=== PATIENT | male | born 1970 | race Asian ===

== ENCOUNTER 2023-09-23 07:02 | Day surgery (SDC) | payer OTHER ==
[2023-09-22 09:29] VITALS: BP 141/98
[~2023-09-23] VITALS: Ht 170.2 cm; Wt 70.4 kg
[2023-09-23 07:17] VITALS: BP 152/94
[2023-09-23 12:03] VITALS: BP 146/83
--- NOTE | 2023-09-23 12:16 | NUR ---
LE 1155 PATIENT BACK TO ROOM 4. REPORT RECIEVED FROM EFFIE RAMIREZ. PATIENT DROWSY BUT ORIENTED. PATIENT HAS DRUG AND ALCOHOL COUNSELLOR ON PHONE. PATIENT DENIES BEING NAUSEATED. PATIENT STATES PAIN IS A 2/10 AND TOLERABLE AT THIS TIME. PATIENT HAVING MODERATE AMOUNT OF RED SPUTUM. DR. SAWYER AWARE. PATIENT IVF INFUSING. SCD'S ON. THIS RN AT BEDSIDE. LE 1210 REPORT GIVEN TO EFFIE HENDRICKS. NO QUESTIONS.
--- NOTE | 2023-09-23 12:20 | NUR ---
SILVERIO SORIA IN ROOM AT THIS TIME FOR VISUALIZATION OF PT BLEEDING AND DRESSING. NO NEW ORDERS AT THIS TIME.
--- NOTE | 2023-09-23 12:33 | NUR ---
THIS RN AND TRAVIS RN IN ROOM AT THIS TIME FOR DRIP PAD CHANGE D/T SATURATION OF CURRENT DRESSING THAT IS DRIPPING FROM PT NOSE ONTO CHEST. PT CONTINUES TO DO GOOD DEEP COUGHS THAT ARE PRODUCTIVE, PT USING YANKAUER FOR SUCTION AT LEISURE FOR ANY DRAINING OR SPUTUM COUGHED UP. PT STATES NO FURTHER QUESTIONS AT THIS TIME. PT TAKING SMALL SIPS OF ICE WATER, WELL SWISHING AND SPITTING INTO EMESIS BAG AT THIS TIME. CALL LIGHT WITHIN REACH. CONT. O2 PULSE OX IN PLACE, O2 >90% AT THIS TIME. NO FURTHER NEEDS AT THIS TIME.
--- NOTE | 2023-09-23 12:42 | NUR ---
09/23/23 1242 Tita Stark 1115 PT ARRIVED IN PACU NON RESPONSIVE TO NOXIOUS STIMULI WITH OPA IN PLACE. BILAT PACKING IN PLACE WITH BUTTON TIED AT END OF NOSE WITH MODERATED DRAINAGE NOTED. R RODRIGUEZ WITH BLOOD RUNNING DOWN CHEEK. DRIP PAD PLACED. 1120 DR AT BEDSIDE. 1124 PT REACTIVE. OPA REMOVED. 1125 PT MOVING HEAD SIDE TO SIDE AND BILAT NARES BLEEDING. DRIP PAD CHANGED AND PLACED TO BILAT NARES. 1126 PT COUGHING. RN ORALLY SUCTIONING PT. 1130 OXYGEN MASK REMOVED AND OXYMASK PLACED. SATS INCREASED TO 97% ON 10L. 1135 CALLED PT'S FRIEND THAT TRANSLATES, RELATED TO IPAD STATING LONG WAIT FOR MANDARIN MAID SUPERVISOR. PT'S FRIEND TRANSLATED FOR TEEN COUNSELOR. 1145 PT WITH NO C/O'S. 1155 TO DS. REPORT GIVEN TO RN.
--- NOTE | 2023-09-23 12:45 | NUR ---
THIS RN AND TRAVIS RN IN ROOM AT THIS TIME FOR DRESSING CHANGE. ICE PACK APPLIED TO NOSE AT THIS TIME. PT CONTINUES TO SPIT UP RED SPUTUM AND USE YANKAUER NEEDED. PT STATES NO FURTHER QUESTIONS OR NEEDS AT THIS TIME. DRIP PAD CHANGED D/T SATURATION. CALL LIGHT WITHIN REACH.
--- NOTE | 2023-09-23 12:51 | OR ---
[facility] [address], [place] [address] Signed DATE OF OPERATION: 09/23/2023 SURGEON: Scar Sawyer MD PREOPERATIVE DIAGNOSES: 1. Chronic sinonasal polyposis. 2. Chronic sinusitis. POSTOPERATIVE DIAGNOSES: 1. Chronic sinonasal polyposis. 2. Chronic sinusitis. PROCEDURES: 1. Bilateral pansinusotomies. 2. Bilateral intranasal polypectomies. ANESTHESIA: General, LMA; ADZING AND BORING MACHINE OPERATOR, Madhavi PREOPERATIVE HISTORY: Mr. Richard is a 53-year-old male with a long history of nasal congestion. Exam in the office has confirmed sinonasal polyposis. CAT scans confirmed pansinus opacification, presumptively from sinus polyps, nasal polyps. He is taken to the operating room for the above-mentioned procedures. OPERATIVE PROCEDURE AND FINDINGS: After informed consent, using bit setter chinmay since the patient is a Mandarin speaker, minimal Belarusian, he is taken to the operating room, placed in supine position. After informed consent, the patient received preoperative intranasal oxymetazoline intravenous Ancef. The preop CT was viewed throughout. General LMA anesthesia was induced. The patient was repositioned. Headlight speculum exam of the nasal cavity, starting on the left, showed superior nasal cavity filled with polypoid material. This was all removed with the Mikhail followed up into the ethmoid area. The ethmoid sinuses were opened, polypoid material removed. Nasofrontal area was filled with polypoid material, these were followed up and removed from the nasal frontal duct. The sphenoid sinus was identified with the suction and opened, widened, and suctioned. Mucous suctioned, no polyps in the sphenoid sinus, just mucoid fluid. The middle meatal antrostomy was made with a curved ring curette. No polypoid material in the maxillary sinus. The antrostomy was widened with the Mikhail. Bleeding was minimal, stopped afterwards, packing was then placed. Arvizu pack coated with Neosporin in the middle meatus and a Electronically Signed By: SCAR SAWYER MD 09/23/23 1251 PATIENT NAME: JEFF RICHARD OPERATIVE REPORT DATE OF : 72 REPORT #: [id number] PHYSICIAN: SCAR SAWYER MD PCP: REBEKA GOSS PA-C REPORT IS CONFIDENTIAL AND NOT TO BE RELEASED WITHOUT AUTHORIZATION [facility] [address] [place] [id number] Signed trimmed Merocel pack coated with Neosporin in the nasal cavity. The same procedure on the right side, basically the same findings, possibly a bit less polypoid material. The sphenoid sinus was opened as per the left side with mucoid drainage suctioned clear. The packing was placed. The same is the left side. Packing was tied anteriorly over a pad. The pharynx was suctioned clear of blood secretions, hemostasis was verified. The patient was then awakened, extubated, transported to recovery in good condition. No complications. Blood loss about 100 mL. SPECIMENS: Left sinonasal polyps and right sent separately to Pathology for permanent sections. PACKING: Two pieces of Merocel each side. COMPLICATIONS: No complications. DRAINS: No drains. Scar Sawyer MD GC/MODL /[id number] Copies: ~ Electronically Signed By: SCAR SAWYER MD 09/23/23 1251 PATIENT NAME: JEFF RICHARD OPERATIVE REPORT DATE OF : 72 REPORT #: [id number] PHYSICIAN: SCAR SAWYER MD PCP: REBEKA GOSS PA-C REPORT IS CONFIDENTIAL AND NOT TO BE RELEASED WITHOUT AUTHORIZATION
--- NOTE | 2023-09-23 13:08 | NUR ---
IN PT ROOM FOR DRESSING CHANGE OF DRIP PAD D/T SATURATION. PT CONTINUES TO USE SUCTION PRN FOR BLOODY SPUTUM. CALL LIGHT WITHIN REACH, NO FURTHER NEEDS AT THIS TIME.
[2023-09-23 13:37] VITALS: BP 150/91
--- NOTE | 2023-09-23 13:41 | NUR ---
LE 1335 PATIENT ALERT AND ORIENTED. BREATHING EQUAL AND UNLABORED. OXYGEN SATURATIONS ABOVE 90% ON ROOM AIR. PATIENT STATES "NOT IN VERY MUCH PAIN." PATIENT DENIES BEING NAUSEATED. PATIENT STILL HAS MODERATE AMOUNT OF RED DRAINAGE ON GAUZE PAD. PATIENT USING WATER TO SWISH AND SPIT IN AN EMESIS BAG. RED CLEAR DRAINAGE. PATIENT HAS CALL LIGHT WITHIN REACH NO FUTHER NEEDS. NO QUESTIONS AT THIS TIME.
--- NOTE | 2023-09-23 13:58 | NUR ---
IN PT ROOM FOR ASSESSMENT OF SURGICAL DRESSING. DRIP PAD IS SATURATED AND CHANGED OUT AT THIS TIME W/GAUZE AND TAPE. PT HAS SLOWED DOWN USAGE OF YANKAUER SUCTION AND CONTINUES TO REPORT PAIN 3/10 AND TOLERABLE AT THIS TIME. PT STATES HE DOES NOT NEED PAIN MEDICINE AT THIS TIME. PT UP TO RESTROOM, THIS RN STANDBY ASSIST. PT GAIT IS STEADY AND URINE VOID UNMEASURABLE AMOUNT, BUT QUANTITY SUFFICIENT. PT BACK TO BED EATING APPLESAUCE AND CRACKERS, TOLERATING ICE WATER WELL. CALL LIGHT WITHIN REACH.
--- NOTE | 2023-09-23 14:14 | NUR ---
THIS RN SPOKE W/SILVERIO SORIA ON PHONE AND UPDATED ON PT CONDITION, DRIP PAD DRESSING CHANGE OCCURRENCES, AND USE OF YANKAUER SUCTION DEVICE. NO NEW ORDERS AT THIS TIME. VERBAL ORDER FOR OKAY TO DISCHARGE WITH SUPPLIES FOR DRIP PAD CHANGES BY SILVERIO SORIA. NO NEW ORDERS AT THIS TIME.
--- NOTE | 2023-09-23 14:38 | NUR ---
IN PT ROOM FOR DRESSING CHANGE OF DRIP PAD D/T SATURATION. NEW DRIP PAD IN PLACE. PT USES YANKAUER TO SUCTION SPUTUM AND RED SPUTUM CONTINUES TO DRAIN, PT SUCTIONS OUT GAGAN RED SPUTUM. PT CONTINUES TO REPORT NO CHANGE IN PAIN OR NAUSEA AT THIS TIME. CALL LIGHT WITHIN REACH, NO FURTHER NEEDS AT THIS TIME. FRIEND/STILL WORKER HELPER ASHLEY CALLED AND UPDATED.
[2023-09-23 15:08] VITALS: BP 146/89
--- NOTE | 2023-09-23 15:16 | NUR ---
IN PT ROOM FOR ASSESSMENT AND VS. VS TAKEN. SMALL AMOUNT OF DRAINAGE ON DRIP PAD DRESSING AT THIS TIME. PT REPORTS PAIN 2/10 AND STATES THIS IS TOLERABLE AT THIS TIME. PT REPORTS NO NAUSEA AT THIS TIME. PT STATES HE DOES NOT FEEL THOUGH HE IS SWALLOWING EXCESSIVELY AT THIS TIME. OCCASIONAL USE OF YANKAUER FOR SPUTUM. CALL LIGHT WITHIN REACH, MORE ICE WATER PROVIDED, NO FURTHER NEEDS AT THIS TIME.
--- NOTE | 2023-09-23 16:05 | NUR ---
IN PT ROOM FOR ASSESSMENT OF DRESSING. SMALL AMOUNT OF SS DRAINAGE ON DRESSING, NOSE DRIP DRESSING REMAINS INTACT AND DRAINAGE HAS NOT SATURATED THROUGH TO NEED PRN DRIP PADDING CHANGE YET. PT GETTING DRESSED, VERBALIZES UNDERSTANDING TO NOT BEND OVER. FRIEND/SEX CRIMES DETECTIVE ASHLEY CALLED FOR RIDE.
--- NOTE | 2023-09-23 16:30 | NUR ---
FRIEND/MANAGER MARKETING SALES ASHLEY ARRIVES TO HOSPITAL EDUCATION COORDINATOR PT. DISCHARGE EDUCATION DISCUSSED, PT STATES VERBAL UNDERSTANDING AND STATES HE HAS NO FURTHER QUESTIONS AT THIS TIME. THIS RN W/PT IN BATHROOM IN FRONT OF MIRROR SHOWED HOW TO CHANGE NASAL DRIP PAD, SUPPLIES SENT HOME WITH PT. PT OFF OF UNIT VIA WC TO PASSENGER SIDE OF ASHLEY'S VEHICLE. PT REPORTS NO FURTHER NEEDS OR QUESTIONS AT THIS TIME.
[2023-09-23 16:50] VITALS: BP 144/85
--- NOTE | 2023-09-26 16:00 | PATH ---
[facility] [address], [place] [address] Signed SPECIMEN(S): A LEFT SINUS CONTENTS AND POLYPS SPECIMEN(S): B RIGHT SINUS CONTENTS AND POLYPS SPECIMEN SOURCE: A. LEFT SINUS CONTENTS AND POLYPS B. RIGHT SINUS CONTENTS AND POLYPS CLINICAL HISTORY: Bilateral intranasal polypectomy. Polyps. Anosmia. FINAL PATHOLOGIC DIAGNOSIS: A. Left sinus contents and polyps: - Benign polypoid respiratory-type mucosa with mild chronic inflammation. - Focal mild to moderate stromal eosinophils. - Fragments of benign bone. B. Right sinus contents and polyps: - Benign polypoid respiratory-type mucosa with mild chronic inflammation. - Focal mild to moderate stromal eosinophils. - Fragments of benign bone. JVR:evelio MICROSCOPIC EXAMINATION: Histologic sections of all submitted blocks are examined by light microscopy. These findings, together with the gross examination, support the pathologic diagnosis. GROSS DESCRIPTION: A. The specimen, labeled and designated "Abrahan, A" and designated on the requisition "left sinus contents/polyps," is received in formalin and consists of multiple fragments of pink-cleary to red-brown, soft, edematous tissue with fragments of bone (4.5 x 4.0 x 0.8 cm in aggregate). The specimen is submitted entirely in cassettes A1-A2. B. The specimen, labeled and designated "Abrahan, B" and designated on the requisition "right sinus contents/polyps," is received in formalin and consists of multiple fragments of cleary-pink to red-brown, soft, and edematous tissue (3.5 x 3.2 x 0.5 cm in aggregate). The specimen is submitted entirely in cassettes B1-B2. AC (under the direct supervision of a pathologist) The Gross Description was prepared using a voice recognition system. The report was reviewed for accuracy; however, sound-alike word errors, addition and/or deletions may occur. If there is any PATIENT NAME: JEFF RICHARD PATHOLOGY DATE OF : 72 REPORT #: [id number] PHYSICIAN: SONNY PATHOLOGY PCP: REBEKA GOSS PA-C REPORT IS CONFIDENTIAL AND NOT TO BE RELEASED WITHOUT AUTHORIZATION [facility] [address], [place] [address] Signed question about this report, please contact Client Services. ADDITIONAL NOTES: Immunohistochemical and/or in situ hybridization studies if performed in this case included appropriate positive controls that reacted as expected. This test was developed and its performance characteristics determined by [facility]. It has not been cleared or approved by the U.S. Food and Drug Administration. The FDA has determined that such clearance or approval is not necessary. This test is used for clinical purposes. It should not be regarded as investigational or for research. [facility] is certified under the Clinical Laboratory Improvement Amendments of 1988 (CLIA) as qualified to perform high complexity clinical laboratory testing. PERFORMING LABORATORY: Technical component was performed by [facility], [address] [place] [id number] (CLIA# [id number]). Professional interpretation was performed by [facility], [address] [place] [id number] (CLIA#: [id number]). Diagnostician: Rafiq Elizalde MD Pathologist Electronically Signed 09/26/2023 Copies: ~ PATIENT NAME: JEFF RICHARD PATHOLOGY DATE OF : 72 REPORT #: [id number] PHYSICIAN: SONNY PATHOLOGY PCP: REBEKA GOSS PA-C REPORT IS CONFIDENTIAL AND NOT TO BE RELEASED WITHOUT AUTHORIZATION
== END 2023-09-23 16:50 | disposition home or self-care (01) ==
LOC: DS 07:02
PROVIDERS: ATTEND Otolaryngology
PROC: 09BT8ZZ Excision of Left Frontal Sinus, Via Natural or Artificial Opening Endoscopic (ICD-10-PCS; principal; 2023-09-23 10:00)
PROC: 09BS8ZZ Excision of Right Frontal Sinus, Via Natural or Artificial Opening Endoscopic (ICD-10-PCS; 2023-09-23 10:00)
DX: J33.8 Other polyp of sinus (principal); J32.9 Chronic sinusitis, unspecified
CPT/HCPCS: 88305; A9270; J0131; J0690; J1100; J2001; J2250; J2405; J2704; J3490; J7121